=== PATIENT | male | born 1980 | race Caucasian/White ===

== ENCOUNTER 2022-09-08 09:21 | Inpatient (IN) | payer BC ==
[~2022-09-08] VITALS: Ht 177.8 cm; Wt 131.7 kg
[2022-09-08 09:26] VITALS: BP 116/79
[2022-09-08 10:01] LABS: BILIRUBIN 2+ (Negative); BLOOD 3+ (Negative); CLARITY Turbid (Clear); COLOR Red (Yellow); GLUCOSE Negative (Negative); KETONE Negative (Negative); LEUKO ESTERASE 2+ (Negative); NITRITE Positive (Negative); PH 5.5 (4.5-8.0); SPECIFIC GRAVITY >= 1.030 (1.001-1.030)
[2022-09-08 10:06] LABS: BASO # 0.1 10*3/uL (0.0-0.1); BASO % 0.4 % (0.0-1.0); EOS # 0.2 10*3/uL (0.0-0.4); EOS % 1.2 % (1.0-4.0); LYMPH # 2.4 10*3/uL (1.3-4.4); LYMPH % 12.5 % (27.0-41.0); MEAN CELL VOLUME 89.9 fl (80.0-94.0); MEAN CORPUSCULAR HGB 31.8 pg (27.0-31.0); MEAN CORPUSCULAR HGB CONC 35.4 g/dl (33.0-37.0); MEAN PLATELET VOLUME 8.8 fl (9.6-12.3); MONO # 1.1 10*3/uL (0.1-1.0); MONO % 5.8 % (3.0-9.0); NEUT # 14.9 10*3/uL (2.3-7.9); NEUT % 79.6 % (47.0-73.0); PLATELET COUNT AUTOMATED 223 10*3/uL (130-400); RED BLOOD COUNT 4.56 10*6/uL (4.50-5.90); RED CELL DISTRI WIDTH 12.8 % (0-14.5); WHITE BLOOD COUNT 18.7 10*3/uL (4.8-10.8)
[2022-09-08 10:27] LABS: RBC TNTC rbc/hpf (0-2); WBC TNTC wbc/hpf (0-5)
[2022-09-08 10:31] LABS: ALKALINE PHOSPHATASE 74 U/L (46-116); BUN 10 mg/dl (9-23); CHLORIDE 105 mmol/L (98-107); LIPASE 42 U/L (12-53); POTASSIUM 3.8 mmol/L (3.4-5.1); SGPT/ALT 38 U/L (10-49); TOTAL PROTEIN 6.9 gm/dL (6.0-8.0)
[2022-09-08 14:29] VITALS: BP 102/63
[2022-09-08] MEDS ORDERED: BENZTROPINE MESY1 MG PO (14:41)
[2022-09-08] MEDS ORDERED: LAMOTRIGINE25 M1 PO (14:41)
[2022-09-08] MEDS ORDERED: ARIPIPRAZOLE30 MG PO (14:42)
[2022-09-08] MEDS ORDERED: DILTIAZEM HCL120 M2 PO (14:43)
[2022-09-08 16:00] VITALS: BP 103/56
[2022-09-08 20:00] VITALS: BP 106/41
[2022-09-09] VITALS: BP 108/55
[2022-09-09 06:09] LABS: BUN 6 mg/dl (9-23); CHLORIDE 107 mmol/L (98-107); CHOLESTEROL 120 mg/dL (<200); FREE T4 1.22 ng/dl (0.89-1.76); LDL CHOLESTEROL 67 mg/dL (9-159); POTASSIUM 3.5 mmol/L (3.4-5.1); THYROID STIM HORMONE (HS) 2.563 uIU/ml (0.550-4.780); TRIGLYCERIDES 88 mg/dl (<150)
[2022-09-09 06:43] LABS: BASO % 0.3 % (0.0-1.0); EOS # 0.2 10*3/uL (0.0-0.4); EOS % 1.4 % (1.0-4.0); HEMATOCRIT 40.4 % (42.0-52.0); LYMPH # 2.9 10*3/uL (1.3-4.4); LYMPH % 18.9 % (27.0-41.0); MEAN CORPUSCULAR HGB 31.1 pg (27.0-31.0); MEAN CORPUSCULAR HGB CONC 32.9 g/dl (33.0-37.0); MEAN PLATELET VOLUME 9.8 fl (9.6-12.3); MONO # 0.9 10*3/uL (0.1-1.0); MONO % 5.9 % (3.0-9.0); NEUT # 11.3 10*3/uL (2.3-7.9); PLATELET COUNT AUTOMATED 210 10*3/uL (130-400); RED BLOOD COUNT 4.27 10*6/uL (4.50-5.90); RED CELL DISTRI WIDTH 13.1 % (0-14.5); WHITE BLOOD COUNT 15.4 10*3/uL (4.8-10.8)
[2022-09-09 06:46] LABS: MEAN CELL VOLUME 94.6 fl (80.0-94.0)
[2022-09-09 06:59] LABS: VITAMIN D, 25-HYDROXY 12.9 ng/mL (30-100)
[2022-09-09 08:00] VITALS: BP 116/55
[2022-09-09 12:00] VITALS: BP 110/53
[2022-09-09 16:00] VITALS: BP 109/64
[2022-09-09 20:00] VITALS: BP 106/58
[2022-09-10] VITALS: BP 112/57
[2022-09-10 07:23] LABS: BASO # 0.1 10*3/uL (0.0-0.1); BASO % 0.5 % (0.0-1.0); EOS # 0.4 10*3/uL (0.0-0.4); EOS % 3.8 % (1.0-4.0); HEMATOCRIT 39.4 % (42.0-52.0); LYMPH # 3.2 10*3/uL (1.3-4.4); LYMPH % 28.3 % (27.0-41.0); MEAN CELL VOLUME 91.6 fl (80.0-94.0); MEAN CORPUSCULAR HGB 30.9 pg (27.0-31.0); MEAN CORPUSCULAR HGB CONC 33.8 g/dl (33.0-37.0); MEAN PLATELET VOLUME 9.3 fl (9.6-12.3); MONO # 0.9 10*3/uL (0.1-1.0); MONO % 7.6 % (3.0-9.0); NEUT # 6.6 10*3/uL (2.3-7.9); NEUT % 59.2 % (47.0-73.0); PLATELET COUNT AUTOMATED 213 10*3/uL (130-400); RED CELL DISTRI WIDTH 12.7 % (0-14.5); WHITE BLOOD COUNT 11.2 10*3/uL (4.8-10.8)
[2022-09-10 07:29] LABS: CHLORIDE 107 mmol/L (98-107); POTASSIUM 3.5 mmol/L (3.4-5.1)
[2022-09-10 07:31] LABS: BUN < 5 mg/dl (9-23)
[2022-09-10 08:00] VITALS: BP 127/82
[2022-09-10] MEDS ORDERED: CIPRO500 MG PO (09:45)
== END 2022-09-10 10:21 | disposition home or self-care (01) | DRG 872 ==
LOC: ED 09:21 → EDHOLD 12:08 → 5E 12:08 → EDHOLD 12:11 → 5E 12:30
PROVIDERS: Family Medicine; Student in an Organized Health Care Education/Training Program; ADMIT Internal Medicine; ATTEND Internal Medicine
DX: A41.9 Sepsis, unspecified organism (principal); N39.0 Urinary tract infection, site not specified; F10.90 Alcohol use, unspecified, uncomplicated; F32.A Depression, unspecified; F41.9 Anxiety disorder, unspecified; G25.81 Restless legs syndrome; R31.29 Other microscopic hematuria; R73.9 Hyperglycemia, unspecified; F41.8 Other specified anxiety disorders; Z90.49 Acquired absence of other specified parts of digestive tract; I25.2 Old myocardial infarction

== ENCOUNTER 2024-02-15 16:59 | Emergency (ER) | payer BC ==
[~2024-02-15] VITALS: Ht 172.7 cm; Wt 115.7 kg
[~2024-02-15 16:59] MED LIST: ARIPIPRAZOLE30 MG PO; BENZTROPINE MESY1 MG PO; CIPRO500 MG PO; DILTIAZEM HCL120 M2 PO; LAMOTRIGINE25 M1 PO
[2024-02-15 17:06] VITALS: BP 123/80
[2024-02-15] MEDS ORDERED: Acetaminophen/Hydrocodone 5 MG/325 MG TABLET PO ONE (19:05)
[2024-02-15] MEDS ORDERED: CLINDAMYCIN HCL 300 MG CAPSULE PO ONE (19:05)
[2024-02-15] MEDS ORDERED: Ondansetron Hydrochloride 4 MG TAB SL ONE (19:05)
[2024-02-15] MEDS ORDERED: CLINDAMYCIN HC300 MG PO (19:08)
== END 2024-02-15 19:13 | disposition home or self-care (01) ==
LOC: ED 16:59
DX: K02.9 Dental caries, unspecified (principal); K08.89 Other specified disorders of teeth and supporting structures; F32.A Depression, unspecified; F12.90 Cannabis use, unspecified, uncomplicated; F17.200 Nicotine dependence, unspecified, uncomplicated; Z87.442 Personal history of urinary calculi; Z88.0 Allergy status to penicillin; Z90.49 Acquired absence of other specified parts of digestive tract; Z95.5 Presence of coronary angioplasty implant and graft